=== PATIENT | male | born 1965 | race Caucasian/White ===

== ENCOUNTER 2020-08-07 20:06 | Inpatient (IN) ==
[2020-08-08] MEDS ORDERED: Naloxone 0.4 MG/ML INJ IVP PRN (01:33)
[2020-08-08] MEDS ORDERED: Ondansetron 4 MG/2 ML VIAL IVP PRN (01:33)
[2020-08-08 02:00] LABS: Basophils % 0.2 %; Eosinophils # 0.2 K/mcL (0.0-0.6); Eosinophils % 1.6 %; Hematocrit 26.8 % (37.5-50.1); Hemoglobin 8.3 g/dL (12.9-16.9); Immature Granulocytes % 0.5 % (0-4); Lymphocytes # 2.3 K/mcL (0.6-4.6); Mean Corpuscular Hemoglobin 23.9 pg (28.0-33.3); Mean Corpuscular Volume 77.2 fL (83.0-100.0); Mean Platelet Volume 8.1 fL (9.4-12.4); Monocytes # 1.1 K/mcL (0.0-1.3); Monocytes % 8.2 %; Neutrophils # 9.3 K/mcL (1.6-8.9); Platelet Count 170 K/mcL (140-400); Red Blood Count 3.47 M/mcL (4.19-5.50); Red Cell Distribution Width 15.9 % (11.5-14.5); Segmented Neutrophils % 71.5 %
[2020-08-08 02:10] LABS: INR 1.4; Prothrombin Time 15.9 Seconds (9.4-12.1)
[2020-08-08 02:13] LABS: Activated Partial Thrombo Time 34.8 Seconds (26.0-36.0)
[2020-08-08 02:20] LABS: Alanine Aminotransferase 17 Units/L (7-52); Albumin/Globulin Ratio 0.7 (1.1-2.2); Alkaline Phosphatase 84 Units/L (34-104); Aspartate Amino Transferase 13 Units/L (13-39); BUN/Creatinine Ratio 17 (6-26); Bilirubin,Total 0.3 mg/dL (0.3-1.0); Blood Urea Nitrogen 19 mg/dL (6-20); Calcium 8.5 mg/dL (8.6-10.3); Carbon Dioxide 19 mEq/L (23-29); Chloride 102 mEq/L (98-107); Globulin 4.1 g/dL (2.4-3.5); Glucose 282 mg/dL (70-105); Magnesium 1.6 mg/dL (1.6-2.6); Osmolality,Calculated 280 (280-300); Phosphorous 1.7 mg/dL (2.7-4.5); Potassium 4.3 mEq/L (3.5-5.1); Sodium 129 mEq/L (136-145); Total Protein 7.1 g/dL (6.4-8.9); eGFR For African Americans > 60 (> 60); eGFR For Non-African Americans > 60 (> 60)
[2020-08-08] MEDS ORDERED: *HR* Dextrose 50 % in Water (Vial) 50 ML VIAL IVP PRN (03:34)
[2020-08-08] MEDS ORDERED: D5% in Water 1,000 ML IVC PRN (03:34)
[2020-08-08] MEDS ORDERED: Dextrose Gel 15 GM/37.5 ML TUBE PO PRN ×2 (03:34)
[2020-08-08] MEDS ORDERED: Insulin LISPRO 300 UNITS/3 ML VIAL SUBQ SCH ×3 (06:00→21:00)
[2020-08-08] MEDS ORDERED: Piperacillin/Tazobactam 3.375 GM in 0.9 % Sodium Chloride Mini Bag 100 ML IVPB SCH (08:00)
[2020-08-08 08:14] LABS: Hematocrit 24.4 % (37.5-50.1); Hemoglobin 7.8 g/dL (12.9-16.9); Mean Corpuscular Hemoglobin 24.7 pg (28.0-33.3); Mean Corpuscular Volume 77.2 fL (83.0-100.0); Mean Platelet Volume 8.3 fL (9.4-12.4); Platelet Count 154 K/mcL (140-400); Red Blood Count 3.16 M/mcL (4.19-5.50); Red Cell Distribution Width 15.9 % (11.5-14.5); White Blood Count 10.9 K/mcL (4.3-11.1)
[2020-08-08 08:32] LABS: % Iron Saturation 5 % (20-55); Iron 12 mcg/dL (65-175); Transferrin 168 mg/dL (203-362)
[2020-08-08 08:49] LABS: Ferritin 65 ng/mL (20-250)
[2020-08-08] MEDS ORDERED: Vancomycin 1,500 MG/265 ML IV.SOLN IVPB SCH (09:00)
[2020-08-08 09:49] LABS: C-Reactive Protein 131 mg/L (Less than 10)
[2020-08-08] MEDS ORDERED: Iron Sucrose Complex 400 MG in 0.9 % Sodium Chloride 250 ML IVPB ONE (10:25)
[2020-08-08] MEDS: 0.9 % Sodium Chloride 1,000 ML IVC SCH (10:50)
[2020-08-08] MEDS: Vancomycin 1,500 MG/265 ML IV.SOLN IVPB SCH (11:52)
[2020-08-08] MEDS: Piperacillin/Tazobactam 3.375 GM in 0.9 % Sodium Chloride Mini Bag 100 ML IVPB SCH ×2 (14:24→21:27)
[2020-08-08] MEDS ORDERED: Nitroglycerin 0.4 MG TAB.SUBL SL PRN (14:36)
[2020-08-08] MEDS ORDERED: Famotidine 20 MG TABLET PO PRN (14:42)
[2020-08-08] MEDS: Insulin LISPRO 300 UNITS/3 ML VIAL SUBQ SCH ×3 (15:46→21:31)
[2020-08-08] MEDS ORDERED: Acetaminophen IV 1,000 MG/100 ML BAG IVPB STA (17:17)
[2020-08-08] MEDS ORDERED: *HR* Promethazine 25 MG/ML VIAL IM ONE (18:18)
[2020-08-08] MEDS: Topiramate 25 MG TABLET PO SCH (21:22)
[2020-08-08] MEDS: Insulin DETEMIR 100 UNIT/ML X5UNITS SUBQ SCH (21:28)
[2020-08-09] MEDS: Vancomycin 1,500 MG/265 ML IV.SOLN IVPB SCH ×2 (00:49→13:26)
[2020-08-09] MEDS: 0.9 % Sodium Chloride 1,000 ML IVC SCH ×2 (02:16→14:39)
[2020-08-09 02:21] LABS: Hematocrit 26.3 % (37.5-50.1); Hemoglobin 8.2 g/dL (12.9-16.9); Mean Corpuscular HGB Conc 31.2 g/dL (31.6-35.5); Mean Corpuscular Hemoglobin 24.5 pg (28.0-33.3); Mean Corpuscular Volume 78.5 fL (83.0-100.0); Mean Platelet Volume 8.8 fL (9.4-12.4); Nucleated Red Blood Cells 0.2 /100 WBC (0); Platelet Count 161 K/mcL (140-400); Red Blood Count 3.35 M/mcL (4.19-5.50); Red Cell Distribution Width 16.4 % (11.5-14.5)
[2020-08-09 02:22] LABS: White Blood Count 23.8 K/mcL (4.3-11.1)
[2020-08-09 02:40] LABS: Anisocytosis 1+ (Not Present); Lymphocytes # 0.5 K/mcL (0.6-4.6); Magnesium 1.5 mg/dL (1.6-2.6); Neutrophils # 23.3 K/mcL (1.6-8.9); Phosphorous 1.4 mg/dL (2.7-4.5); Platelet Estimate Normal (Normal); Toxic Granulation Present (Not Present)
[2020-08-09 02:41] LABS: Albumin 2.9 g/dL (3.5-5.7); Albumin/Globulin Ratio 0.7 (1.1-2.2); Bilirubin,Total 0.5 mg/dL (0.3-1.0); Calcium 8.3 mg/dL (8.6-10.3); Globulin 3.9 g/dL (2.4-3.5); Potassium 3.6 mEq/L (3.5-5.1); Total Protein 6.8 g/dL (6.4-8.9)
[2020-08-09] MEDS: Piperacillin/Tazobactam 3.375 GM in 0.9 % Sodium Chloride Mini Bag 100 ML IVPB SCH ×3 (08:06→21:10)
[2020-08-09] MEDS: Topiramate 25 MG TABLET PO SCH ×2 (08:06→21:06)
[2020-08-09] MEDS: allopurinoL 300 MG TABLET PO SCH (08:06)
[2020-08-09] MEDS: Insulin LISPRO 300 UNITS/3 ML VIAL SUBQ SCH ×7 (08:10→21:09)
[2020-08-09] MEDS ORDERED: NON-FORMULARY MEDICATION 1 EACH EACH (Ezetimibe [Zetia] 10 MG Tablet) PO SCH (09:00)
[2020-08-09] MEDS ORDERED: lisinopriL 20 MG TABLET PO SCH (09:00)
[2020-08-09] MEDS ORDERED: 0.9 % Sodium Chloride 1,000 ML IVC ONE (09:40)
[2020-08-09] MEDS: Acetaminophen 325 MG TABLET PO PRN ×2 (14:45→21:05)
[2020-08-09] MEDS ORDERED: 0.9 % Sodium Chloride 1,000 ML IVC SCH (17:00)
[2020-08-09] MEDS: Insulin DETEMIR 100 UNIT/ML X5UNITS SUBQ SCH (21:09)
[2020-08-09] MEDS ORDERED: Benzonatate 100 MG CAPSULE PO PRN (23:23)
[2020-08-10 01:07] LABS: Basophils % 0.3 %; Eosinophils # 0.4 K/mcL (0.0-0.6); Eosinophils % 3.6 %; Hematocrit 21.6 % (37.5-50.1); Hemoglobin 6.8 g/dL (12.9-16.9); Immature Granulocytes % 0.3 % (0-4); Lymphocytes # 1.7 K/mcL (0.6-4.6); Lymphocytes % 14.8 %; Mean Corpuscular HGB Conc 31.5 g/dL (31.6-35.5); Mean Corpuscular Hemoglobin 25.2 pg (28.0-33.3); Mean Platelet Volume 9.1 fL (9.4-12.4); Monocytes # 0.8 K/mcL (0.0-1.3); Monocytes % 7.2 %; Platelet Count 125 K/mcL (140-400); Red Cell Distribution Width 16.7 % (11.5-14.5); Segmented Neutrophils % 73.8 %
[2020-08-10 01:17] LABS: BUN/Creatinine Ratio 13 (6-26); Blood Urea Nitrogen 16 mg/dL (6-20); Calcium 7.7 mg/dL (8.6-10.3); Carbon Dioxide 18 mEq/L (23-29); Chloride 111 mEq/L (98-107); Glucose 166 mg/dL (70-105); Magnesium 1.9 mg/dL (1.6-2.6); Neutrophils # 8.5 K/mcL (1.6-8.9); Osmolality,Calculated 285 (280-300); Phosphorous 2.4 mg/dL (2.7-4.5); Potassium 4.3 mEq/L (3.5-5.1); Sodium 135 mEq/L (136-145); White Blood Count 11.5 K/mcL (4.3-11.1); eGFR For African Americans > 60 (> 60); eGFR For Non-African Americans > 60 (> 60)
[2020-08-10] MEDS: Vancomycin 1,500 MG/265 ML IV.SOLN IVPB SCH ×2 (01:58→12:30)
[2020-08-10] MEDS: 0.9 % Sodium Chloride 1,000 ML IVC SCH ×3 (02:03→16:45)
[2020-08-10] MEDS: Acetaminophen 325 MG TABLET PO PRN (09:20)
[2020-08-10] MEDS: Topiramate 25 MG TABLET PO SCH ×2 (09:20→20:41)
[2020-08-10] MEDS: allopurinoL 300 MG TABLET PO SCH (09:20)
[2020-08-10] MEDS: Piperacillin/Tazobactam 3.375 GM in 0.9 % Sodium Chloride Mini Bag 100 ML IVPB SCH ×3 (09:21→23:58)
[2020-08-10] MEDS: Insulin LISPRO 300 UNITS/3 ML VIAL SUBQ SCH ×7 (09:22→20:43)
[2020-08-10] MEDS ORDERED: 0.9 % Sodium Chloride 250 ML ONE (12:23)
[2020-08-10] MEDS: Pantoprazole 40 MG VIAL IVP SCH (16:44)
[2020-08-10] MEDS: Insulin DETEMIR 100 UNIT/ML X5UNITS SUBQ SCH (20:42)
[2020-08-11] MEDS: 0.9 % Sodium Chloride 1,000 ML IVC SCH ×2 (01:28→08:20)
[2020-08-11] MEDS: Vancomycin 1,500 MG/265 ML IV.SOLN IVPB SCH ×2 (01:30→12:47)
[2020-08-11] MEDS ORDERED: *HR* LORazepam 1 MG TABLET PO ONE (05:06)
[2020-08-11] MEDS ORDERED: Nicotine 14 MG PATCH.TD24 TD SCH (05:09)
[2020-08-11] MEDS: Pantoprazole 40 MG VIAL IVP SCH (05:24)
[2020-08-11 07:40] LABS: Eosinophils # 0.3 K/mcL (0.0-0.6); Hemoglobin 7.4 g/dL (12.9-16.9); Monocytes # 0.6 K/mcL (0.0-1.3)
[2020-08-11 07:47] LABS: BUN/Creatinine Ratio 12 (6-26); Blood Urea Nitrogen 13 mg/dL (6-20); Carbon Dioxide 17 mEq/L (23-29); Chloride 112 mEq/L (98-107); Glucose 97 mg/dL (70-105); Magnesium 1.7 mg/dL (1.6-2.6); Osmolality,Calculated 280 (280-300); Phosphorous 2.5 mg/dL (2.7-4.5); Potassium 3.8 mEq/L (3.5-5.1); Sodium 135 mEq/L (136-145); eGFR For African Americans > 60 (> 60); eGFR For Non-African Americans > 60 (> 60)
[2020-08-11] MEDS: Insulin LISPRO 300 UNITS/3 ML VIAL SUBQ SCH ×4 (08:11→12:46)
[2020-08-11] MEDS: Piperacillin/Tazobactam 3.375 GM in 0.9 % Sodium Chloride Mini Bag 100 ML IVPB SCH (08:18)
[2020-08-11] MEDS: allopurinoL 300 MG TABLET PO SCH (08:20)
[2020-08-11] MEDS: Topiramate 25 MG TABLET PO SCH (08:20)
[2020-08-11] MEDS ORDERED: Lidocaine -MPF 1% 5 ML AMPUL INFILT ONE ×2 (11:04→14:29)
[2020-08-11] MEDS ORDERED: levoFLOXacin 750 MG/150 ML 750 MG/150 ML BAG IVPB SCH (11:15)
[2020-08-11 11:46] LABS: Basophils % 0.4 %; Eosinophils % 3.2 %; Hematocrit 23.6 % (37.5-50.1); Immature Granulocytes % 0.7 % (0-4); Lymphocytes # 1.9 K/mcL (0.6-4.6); Lymphocytes % 19.3 %; Mean Corpuscular HGB Conc 31.4 g/dL (31.6-35.5); Mean Corpuscular Hemoglobin 24.7 pg (28.0-33.3); Mean Corpuscular Volume 78.9 fL (83.0-100.0); Monocytes % 6.2 %; Neutrophils # 6.8 K/mcL (1.6-8.9); Nucleated Red Blood Cells 0.2 /100 WBC (0); Platelet Count 172 K/mcL (140-400); Red Blood Count 2.99 M/mcL (4.19-5.50); Red Cell Distribution Width 17.4 % (11.5-14.5); Segmented Neutrophils % 70.2 %; White Blood Count 9.7 K/mcL (4.3-11.1)
[2020-08-11 11:54] VITALS: BP 110/67
[2020-08-11 12:34] LABS: Hematocrit 23.8 % (37.5-50.1); Hemoglobin 7.5 g/dL (12.9-16.9); Mean Corpuscular HGB Conc 31.5 g/dL (31.6-35.5); Mean Corpuscular Hemoglobin 25.3 pg (28.0-33.3); Mean Corpuscular Volume 80.4 fL (83.0-100.0); Mean Platelet Volume 9.1 fL (9.4-12.4); Platelet Count 171 K/mcL (140-400); Red Blood Count 2.96 M/mcL (4.19-5.50); Red Cell Distribution Width 17.2 % (11.5-14.5)
[2020-08-11] MEDS: Acetaminophen 325 MG TABLET PO PRN (15:06)
== END 2020-08-11 16:15 | disposition home or self-care (01) | DRG 871 ==
LOC: 2ANU → SUATTDRO 08-08 13:30
PROVIDERS: ADMIT Internal Medicine; ATTEND Student in an Organized Health Care Education/Training Program